=== PATIENT | male | born 1975 | race Caucasian/White ===

== ENCOUNTER 2017-07-15 11:15 | Emergency (ER) | payer OTHER ==
[~2017-07-15] VITALS: Ht 180.3 cm; Wt 119.5 kg
[2017-07-15] MEDS ORDERED: IBUP80TA PO (12:03)
[2017-07-15 12:15] VITALS: BP 154/87
== END 2017-07-15 12:21 | disposition home or self-care (01) ==
LOC: M ED 11:15
DX: M76.62 Achilles tendinitis, left leg (principal)

== ENCOUNTER 2018-12-26 09:35 | Emergency (ER) | payer OTHER ==
[~2018-12-26] VITALS: Ht 180.3 cm; Wt 113.6 kg
[~2018-12-26 09:35] MED LIST: IBUP80TA PO
[2018-12-26 11:04] LABS: INFLUENZA A AMPLIFICATION NEGATIVE (NEGATIVE); INFLUENZA B AMPLIFICATION NEGATIVE (NEGATIVE)
[2018-12-26] MEDS ORDERED: IBUP80TA PO (11:20)
[2018-12-26] MEDS ORDERED: dexameTHASONE 20 MG/5 ML VIAL (J1100) IM ONE (11:30)
[2018-12-26 11:37] VITALS: BP 153/97
== END 2018-12-26 11:38 | disposition home or self-care (01) ==
LOC: M ED 09:35
DX: J02.9 Acute pharyngitis, unspecified (principal); I10 Essential (primary) hypertension
CPT/HCPCS: 87502; 87880; 96372; 99284; J1100